=== PATIENT | female | born 1970 | race Two or more races ===

== ENCOUNTER 2019-06-29 16:12 | Emergency (ER) | payer OTHER ==
[~2019-06-29] VITALS: Ht 157.5 cm; Wt 95.3 kg
[2019-06-29 16:48] VITALS: BP 151/111
== END 2019-06-29 18:24 | disposition left against medical advice (07) ==
LOC: ER 16:12
DX: M25.512 Pain in left shoulder (principal); Z53.21 Procedure and treatment not carried out due to patient leaving prior to being seen by health care provider
CPT/HCPCS: 71045; 93005